=== PATIENT | female | born 1950 | race African-American/Black ===

== ENCOUNTER 2017-11-29 11:37 | Emergency (ER) | payer MEDICARE ==
[2017-11-29 13:48] VITALS: BP 113/74
--- NOTE | 2017-11-29 17:19 | ED ---
Medical Screening - HPI Summary HPI Summary: Patient is a 67-year-old presenting to the ER requesting medication refill. Patient states she just moved to the area from [facility] and does not have a family doctor. Patient is here with her friend who is helping to interpret. Patient does speak some Urdu. Patient has no complaints today. Symptoms are mild in severity. - History of Current Complaint Chief Complaint: EDGeneral Stated Complaint: BLOOD PRESSURE CHECK Time Seen by Provider: 11/29/17 12:19 Severity: mild Associated Signs and Symptoms: Negative PMH/Surg Hx/FS Hx/Imm Hx Previously Healthy: Yes Infectious Disease History: No Infectious Disease History: Denies: Traveled Outside the [place] in Last 30 Days - Social History Occupation: Retired Lives: Alone Alcohol Use: None Substance Use Type: Reports: None Smoking Status (MU): Never Smoked Tobacco Review of Systems All Other Systems Reviewed And Are Negative: Yes Physical Exam Triage Information Reviewed: Yes Vital Signs On Initial Exam: Initial Vitals Temp Pulse Resp BP Pulse Ox 97.8 F 88 15 122/68 98 11/29/17 11:47 11/29/17 11:47 11/29/17 11:47 11/29/17 11:47 11/29/17 11:47 Vital Signs Reviewed: Yes Appearance: Positive: Well-Appearing - Pt. sitting on bed in NAD. Friend present. Skin: Positive: Warm, Dry Neurological: Positive: Normal, CN Intact II-III Psychiatric: Positive: Normal Diagnostics - Vital Signs Vital Signs Temp Pulse Resp BP Pulse Ox 11/29/17 13:48 99 F 82 18 113/74 96 11/29/17 11:47 97.8 F 88 15 122/68 98 - Laboratory Lab Statement: Any lab studies that have been ordered have been reviewed, and results considered in the medical decision making process. Course/Dx - Course Course Of Treatment: Pt. presenting to the ER requesting medication refills. She is afebrile with stable vital signs. She has all her medications with her and has at least a 2 day supply currently. I spoke with the physician referral office and they were able to get pt. an apt. with Dr. Cross for tomorrow, November 30, at 0900. Pt. is agreeable and understands plan. DC to see PCP tomorrow for rx refills. - Diagnoses Provider Diagnoses: Well woman exam Discharge - Sign-Out/Discharge Documenting (check all that apply): Discharge/Admit/Transfer - Discharge Plan Condition: Good Disposition: HOME Referrals: [facility]IAN REFERRAL [Outside] No Primary Care Phys,NOPCP [Primary Care Provider] - Ava Cross MD [Medical Doctor] - Additional Instructions: Dr. Cross will see you in his office tomorrow (11/30/17) at 9:00am Bring your insurance card, ID, and medications - Billing Disposition and Condition Condition: GOOD Disposition: HOME
== END 2017-11-29 13:48 | disposition home or self-care (01) ==
LOC: ED 11:37
DX: Z76.0 Encounter for issue of repeat prescription (principal)
CPT/HCPCS: 99282

== ENCOUNTER 2018-01-03 11:19 | Day surgery (SDC) | payer OTHER, MEDICARE ==
[~2018-01-03 11:19] MED LIST: Acetaminophen TAB* 325 MG PO PRN; Buffered Lidocaine 0.9% SYRIN* 5 ML/SYR SYRINGE INTRADERM ONE
[2018-01-03] MEDS ORDERED: Ketorolac 0.5% OPHTH (NF) 0.5 % 5 ML BTL ONE (11:20)
[2018-01-03] MEDS ORDERED: Neomycin/Polymy/Dex OPHTH.OIN* 3.5 GM ONE (11:20)
[2018-01-03] MEDS ORDERED: Phenylephrine 2.5% OPTH.SOL* 2 ML BTL ONE (11:20)
[2018-01-03] MEDS ORDERED: Tropicamide 1% OPTH.SOL* BTL ONE (11:20)
[2018-01-03] MEDS ORDERED: Povidone Iodine 5% OPTH* 30 ML BTL ONE (11:20)
[2018-01-03] MEDS ORDERED: acetaZOLAMIDE TAB* 250 MG ONE (11:20)
[2018-01-03] MEDS ORDERED: Tetracaine 0.5% OPTH.SOL 4 ML* 1 DROP BTL ONE (11:20)
[2018-01-03] MEDS ORDERED: Cyclopentolate 1% OPTH.SOL* 2 ML BTL ONE (11:20)
[2018-01-03] MEDS ORDERED: Lidocaine 1%* 5 ML VIAL ONE (11:20)
[2018-01-03] MEDS ORDERED: Triamcinolone OPHTH Inj (NF) 40 MG/ML 1 ML VIAL *** OPHTH USE ONLY ONE (13:08)
[2018-01-03] MEDS ORDERED: Midazolam* 1 MG/ML 5 ML VIAL (5 MG) ONE (13:33)
[2018-01-03] MEDS ORDERED: SODIUM CHLORIDE 0.9% ONE (14:19)
[2018-01-03] MEDS ORDERED: Propofol* 10 MG/ML 20 ML BTL IV PUSH ONE (14:23)
[2018-01-03] MEDS ORDERED: fentaNYL* 50 MCG/ML 2 ML VIAL (100 MCG VIAL) ONE (14:41)
[2018-01-03] MEDS ORDERED: Ondansetron INJ* 2 MG/ML VIAL ONE (15:25)
[2018-01-03] MEDS ORDERED: Midazolam* 1 MG/ML 2 ML VIAL (2 MG) ONE (15:37)
[2018-01-03] MEDS ORDERED: BSS OPTH.SOL* BTL ONE (16:15)
[2018-01-03] MEDS ORDERED: Acetaminophen TAB* 325 MG ONE (16:31)
[2018-01-03 16:39] VITALS: BP 143/94
--- NOTE | 2018-01-04 12:16 | OP ---
DATE OF OPERATION: 01/03/18 - [facility] DATE OF : 54 SURGEON: Miguel Amado MD ANESTHESIA: Monitored anesthesia care. PRE-OP DIAGNOSIS: Displaced intraocular lens of the right eye. POST-OP DIAGNOSIS: Displaced intraocular lens of the right eye. OPERATIVE PROCEDURE: Explantation of displaced intraocular lens of the right eye. IMPLANTS: None. COMPLICATIONS: Retained lens haptic. DESCRIPTION OF PROCEDURE: The patient presented for surgery due to a malpositioned intraocular lens of the right eye that was placed in her initial surgery in the [facility] in July 2017. Examination in clinic demonstrated an intraocular lens with haptics in the anterior chamber as well as within the capsular bag with an elevated eye pressure into the 50s and a vision of count fingers. The patient was advised on the need to explant the malpositioned lens due to the induced severe glaucoma. The patient was given phenylephrine 2.5% and cyclopentolate 1% eye drops to the operative eye in the preoperative area. The patient was taken to the operating room where a time- out was taken to identify the correct patient, site and side of surgery. The patient's right eye was prepped and draped in the usual sterile fashion with 5% Betadine. A second time-out was taken to verify the correct patient, site and side of surgery. A lid speculum was placed to the right eye. A 1-mm paracentesis blade was used to make a clear corneal incision in the superotemporal position. Preservative-free 1% lidocaine was injected into the anterior chamber. DisCoVisc was then injected into the anterior chamber both anterior and posterior to the lens optic. The inferotemporal haptic was positioned inside the capsular bag while the superior nasal haptic was angled into the anterior chamber. Corneal haze and edema precluded full examination to allow for appreciation of extent and style of haptics. The inferonasal haptic was prolapsed into the anterior chamber with a cyclodialysis spatula. The haptic was a 4-point contact style haptic, which can be seen in anterior chamber intraocular lenses. The lens was attempted to be rotated to appreciate the position of the nasal haptic. The nasal haptic did not move freely, but it was appreciated that a portion of the haptic curved into the angle, but then also was displaced posterior to the iris. 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 The lens could not be cut with Vannas scissors. Therefore, the temporal haptic was removed separately. Due to inability to cut the lens optic, a corneal incision was made along the limbus from 6:30 to 9:30 in order to allow for delivery of the lens. While trying to remove the lens, the nasal haptic could not be removed freely and pulling on the haptic resulted in nasal iris being pulled centrally. The behavior of the optic was suspicious for either scarring or potentially if she had had sutures placed during her initial surgery. The decision was made to cut the haptic from the optic in order to allow removal of the optic and leave the fragment of the nasal optic secured to its location that it could not be freed from. The lens optic was removed and 10 corneal sutures were then placed at the corneal incision. Fluorescein staining demonstrated the wound to be watertight and no vitreous was present with inspection with the Weck-Alana sponge at the incision. The lid speculum was removed and drapes removed. Maxitrol ointment was placed to the surface of the operative eye. An adhesive patch and shield were then placed on the operative eye. The patient was taken to the postoperative area in stable condition and was given a one-time dose of acetazolamide 500 mg by mouth to facilitate the eye pressure control. The patient will follow up in clinic tomorrow. The surgery was discussed with her son and also he was advised that I was not able to retrieve the nasal haptic and decided to leave it in place, as I felt this was in her best interest. He and the patient expressed understanding and will follow up tomorrow in clinic. [id number]/[facility] #: [id number] [facility]OSPITALChika
== END 2018-01-03 17:05 | disposition home or self-care (01) ==
LOC: OREAST 11:19
PROVIDERS: ATTEND Student in an Organized Health Care Education/Training Program
DX: T85.22XA Displacement of intraocular lens, initial encounter (principal); T85.898A Other specified complication of other internal prosthetic devices, implants and grafts, initial encounter; H40.51X3 Glaucoma secondary to other eye disorders, right eye, severe stage; Z79.84 Long term (current) use of oral hypoglycemic drugs; E11.3313 Type 2 diabetes mellitus with moderate nonproliferative diabetic retinopathy with macular edema, bilateral; I10 Essential (primary) hypertension; H20.21 Lens-induced iridocyclitis, right eye
CPT/HCPCS: A9270-GY; J2250; J2405; J2704; J3010